=== PATIENT | female | born 1980 | race Two or more races ===

== ENCOUNTER → 2018-09-19 | Outpatient (REF) | payer BC ==
[2018-09-19 13:37] LABS: CALCIUM LEVEL 8.4 MG/DL (8.5-10.1); CHOLESTEROL RISK RATIO 5.63 (<5); PHOSPHORUS LEVEL 3.8 MG/DL (2.5-4.9)
== END ==
LOC: M LABDRAW1 12:33
PROVIDERS: ATTEND Internal Medicine Endocrinology, Diabetes & Metabolism
DX: E83.51 Hypocalcemia (principal); E78.00 Pure hypercholesterolemia, unspecified

== ENCOUNTER 2019-01-19 13:19 | Emergency (ER) | payer BC ==
[~2019-01-19] VITALS: Ht 157.5 cm; Wt 73.6 kg
[2019-01-19] MEDS ORDERED: [UNRECOGNIZED DRUG - CODE] SQ (13:47)
[2019-01-19] MEDS ORDERED: SERT-138 PO (13:47)
[2019-01-19] MEDS ORDERED: MONT10TA2 PO (13:47)
[2019-01-19] MEDS ORDERED: MAGN250T7 PO (13:47)
[2019-01-19] MEDS ORDERED: FISH1000 PO (13:47)
[2019-01-19] MEDS ORDERED: CALC1CAP31 PO (13:47)
[2019-01-19] MEDS ORDERED: CLON0.5T8 PO (13:47)
[2019-01-19] MEDS ORDERED: SM G150T PO (13:47)
[2019-01-19] MEDS ORDERED: VITAD1000T PO (13:47)
[2019-01-19] MEDS ORDERED: BUSP10TA PO (13:47)
[2019-01-19] MEDS ORDERED: MELA2.5C3 PO (13:47)
[2019-01-19 14:41] LABS: BLOOD UREA NITROGEN 17 MG/DL (7-18); CALCIUM LEVEL 7.9 MG/DL (8.5-10.1); CARBON DIOXIDE LEVEL 28 MEQ/L (21-32); CHLORIDE LEVEL 107 MEQ/L (98-107); CREATININE FOR GFR 0.84 MG/DL (0.55-1.30); GLOMERULAR FILTRATION RATE > 60.0 (>60); GLUCOSE, FASTING 108 MG/DL (70-100); PHOSPHORUS LEVEL 3.2 MG/DL (2.5-4.9); SODIUM LEVEL 139 MEQ/L (136-145)
[2019-01-19 14:59] LABS: HEMATOCRIT 34.5 % (36.0-47.0); HEMOGLOBIN 11.5 g/dl (12.0-15.5); MEAN CORPUSCULAR HEMOGLOBIN 30.7 pg (27.0-33.0); MEAN CORPUSCULAR HGB CONC 33.3 g/dl (32.0-36.5); MEAN CORPUSCULAR VOLUME 92.2 fl (80.0-96.0); PLATELET COUNT, AUTOMATED 188 10^3/uL (150-450); RED BLOOD COUNT 3.74 10^6/uL (4.00-5.40); WHITE BLOOD COUNT 6.3 10^3/uL (4.0-10.0)
[2019-01-19 15:04] LABS: ALBUMIN 3.8 GM/DL (3.2-5.2); ALT/SGPT 27 U/L (12-78); BILIRUBIN,DIRECT 0.1 MG/DL (0.0-0.2); BILIRUBIN,TOTAL 0.4 MG/DL (0.2-1.0)
[2019-01-19] MEDS ORDERED: CALCIUM GLUCONATE 1,000 MG in D5W MINI-BAG PLUS 100 ML IV ONE (15:15)
[2019-01-19 16:00] VITALS: BP 104/68
--- NOTE | 2019-01-19 20:22 | ECGEPIP ---
[facility] - ED Test Date: 2019-01-19 Pat Name: MILLY SIM Department: Room: - Gender: Female [employer] Operator: KELVIN : 1980 Requested By: Nae Varner Order Number: [id number] Reading MD: Cornelius Simmons Measurements Intervals [place] Rate: 75 P: 28 VA: 124 QRS: 33 QRSD: 80 T: 8 QT: 406 QTc: 454 Interpretive Statements SINUS RHYTHM NSTTW ABNORMALITIES NO PRIORS FOR COMPARISON Electronically Signed on 01-19-2019 20:22:24 EDT by Cornelius Simmons
== END 2019-01-19 17:06 | disposition home or self-care (01) ==
LOC: M ED 13:19
DX: E87.6 Hypokalemia (principal); E78.9 Disorder of lipoprotein metabolism, unspecified; G47.30 Sleep apnea, unspecified; E20.9 Hypoparathyroidism, unspecified; Z79.899 Other long term (current) drug therapy
CPT/HCPCS: 80048; 80076; 82330; 83735; 84100; 85027; 93005; 96374; 99284; J0610

== ENCOUNTER → 2023-08-03 | Outpatient (REF) ==
[~2023-08-03] MED LIST: BUSP10TA PO; CALC1CAP31 PO; CHOL100029 PO; CLON0.5T2 PO; FISH1000 PO; MAGN250T7 PO; MELA2.5C4 PO; MONT10TA97 PO; SERT-138 PO; SM G150T PO; [UNRECOGNIZED DRUG - CODE] SQ
== END ==
LOC: M PLAIMG 10:30
PROVIDERS: ATTEND Internal Medicine
DX: M54.2 Cervicalgia (principal)